=== PATIENT | male | born 1955 | race African-American/Black ===

== ENCOUNTER 2016-12-12 16:15 | Emergency (ER) | payer OTHER ==
[~2016-12-12] VITALS: Ht 185.4 cm; Wt 108.9 kg
[~2016-12-12 16:15] MED LIST: WARF10TA22 PO
[2016-12-12 16:39] VITALS: BP 145/72
== END 2016-12-12 18:00 | disposition home or self-care (01) ==
LOC: ER 16:18
DX: J40 Bronchitis, not specified as acute or chronic (principal); J45.909 Unspecified asthma, uncomplicated; Z79.01 Long term (current) use of anticoagulants; Z86.718 Personal history of other venous thrombosis and embolism; F17.210 Nicotine dependence, cigarettes, uncomplicated; Z88.6 Allergy status to analgesic agent
CPT/HCPCS: 71010; 99283; 99406; A4606; Z7610